=== PATIENT | male | born 1980 | race Hispanic/Latino ===

== ENCOUNTER 2022-01-12 17:26 | Emergency (ER) | payer SELFPAY ==
[2022-01-12] MEDS ORDERED: SODIUM CHLORIDE 0.9% 1000 ML 1,000 ML IV ONE (18:34)
[2022-01-12] MEDS ORDERED: NALOXONE 0.4 MG/1 ML INJ IV ONE (18:40)
--- NOTE | 2022-01-12 19:12 | XRay Report ---
CHEST 1 VIEW INDICATION: chest pain. COMPARISON: None. FINDINGS: Support devices: None. Heart: Normal. Lungs/Pleura: There are low lung volumes with presumed atelectatic changes in the bases. No pleural a bnormality. IMPRESSION: 1. Low lung volumes with presumed atelectatic changes in the bases. Signer Name: Darrel Nation MD Signed: 01/12/2022 7:07 PM Workstation Name: [id number]
--- NOTE | 2022-01-12 19:19 | Emergency Department Report ---
History of Present Illness - General Chief Complaint: Overdose Stated Complaint: OVERDOSE Source: patient, EMS Mode of arrival: Stretcher Limitations: No Limitations - History of Present Illness Initial Comments: Patient is a 41-year-old male presents emergency department after presumed heroin overdose. Patient states that he did take heroin. When asked what he was doing he states that he and his friend were trying to make a family. He received CPR from a special weapons and tactics officer. - Related Data Allergies Allergy/AdvReac Type Severity Reaction Status Date / Time No Known Allergies Allergy Verified 01/12/22 17:29 ED Review of Systems ROS: Stated complaint: OVERDOSE Other details as noted in HPI Comment: Unobtainable due to pts medical conditions ED Past Medical Hx - Past Medical History Previous Medical History?: No - Social History Smoking Status: Never Smoker ED Physical Exam - General Limitations: No Limitations General appearance: lethargic - Head Head exam: Present: atraumatic, normocephalic - Eye Eye exam: Present: normal appearance - ENT ENT exam: Present: mucous membranes moist - Neck Neck exam: Present: normal inspection - Respiratory Respiratory exam: Present: normal lung sounds bilaterally. Absent: respiratory distress - Cardiovascular Cardiovascular Exam: Present: regular rate, normal rhythm. Absent: systolic murmur, diastolic murmur, rubs, gallop - Expanded Cardiovascular Exam Expanded 1 - bruising from CPR - GI/Abdominal GI/Abdominal exam: Present: soft. Absent: distended, tenderness - Rectal Rectal exam: Present: deferred - Extremities Exam Extremities exam: Present: normal inspection - Back Exam Back exam: Present: normal inspection - Neurological Exam Neurological exam: Present: alert - Psychiatric Psychiatric exam: Present: normal affect, normal mood - Skin Skin exam: Present: warm, dry, intact, normal color. Absent: rash ED Course Vital Signs 01/12/22 01/12/22 18:04 19:33 Pulse Rate 75 89 Respiratory 16 Rate Blood Pressure 122/86 120/64 [Left] O2 Sat by Pulse 98 99 Oximetry - Reevaluation(s) Reevaluation #1: 01/12/22 19:56 Patient was given Narcan. After Narcan patient has been up walking around. He is upset that his family members have not made it to the emergency department to be with him. He has called a family member and they are sending someone to be with him while he is in the ER. 01/12/22 20:11 He has decided to leave AMA. Patient is alert oriented has had a steady gait. I offered patient Narcan and instructed him that the Narcan that he already received only lasted for hours so he could have his heroin overcome the Narcan that he has been given especially as patient did use CPR. Patient expressed understanding. I also called patient's cousin to inform him that the patient left AGAINST MEDICAL ADVICE. ED Medical Decision Making - Lab Data Result diagrams: 01/12/22 18:40 01/12/22 18:40 - Medical Decision Making Patient is a 41-year-old male presents to the emergency department after heroin overdose requiring Narcan. Patient was given additional dose of Narcan here in the emergency department. Plan for likely observation for 4 hours after second Narcan administration. Basic labs have been collected. We will give some IV fluids and reassess. Chest x-ray ordered given patient has bruising to the chest from CPR. Critical care attestation.: If time is entered above; I have spent that time in minutes in the direct care of this critically ill patient, excluding procedure time. ED Disposition Clinical Impression: Heroin overdose Disposition: LEFT AGAINST MEDICAL ADVICE Is pt being admited?: No Does the pt Need Aspirin: No Condition: Stable Referrals: PRIMARY CARE, [Primary Care Provider] - 3-5 Days
[2022-01-12 19:45] VITALS: BP 120/64
[2022-01-12] MEDS ORDERED: TETANUS,DIPHTHERIA TOXOID ADULT 0.5 ML INJ IM ONE (19:52)
[2022-01-12 19:53] LABS: Basophils % (Auto) 0.4 % (0.0-1.8); Eosinophils # (Auto) 0.1 K/mm3 (0.0-0.4); Eosinophils % (Auto) 1.2 % (0.0-4.3); Hematocrit 41.8 % (35.5-45.6); Hemoglobin 14.1 gm/dl (11.8-15.2); Lymphocytes # (Auto) 1.5 K/mm3 (1.2-5.4); Lymphocytes % (Auto) 14.3 % (13.4-35.0); Mean Corpuscular HGB Conc 34 % (32-34); Mean Corpuscular Volume 93 fl (84-94); Monocytes # (Auto) 0.8 K/mm3 (0.0-0.8); Monocytes % (Auto) 7.4 % (0.0-7.3); Platelet Count 225 K/mm3 (140-440); Red Blood Count 4.49 M/mm3 (3.65-5.03); Red Cell Distribution Width 13.5 % (13.2-15.2)
[2022-01-12 20:00] LABS: Alanine Aminotransferase 21 units/L (7-56); Albumin 4.4 g/dL (3.9-5); BUN/Creatinine Ratio 11; Blood Urea Nitrogen 10 mg/dL (9-20); Calcium 8.5 mg/dL (8.4-10.2); Hemolysis Index 4
== END 2022-01-12 20:12 | disposition left against medical advice (07) ==
LOC: ED 17:26
DX: T40.1X1A Poisoning by heroin, accidental (unintentional), initial encounter (principal); Y92.89 Other specified places as the place of occurrence of the external cause
CPT/HCPCS: 36415; 71045; 80053; 82962; 85025; 86705; 86706; 86803; 87806; 96361; 96374; 99284; J2310; J7030; 80320; 90714; G0480